=== PATIENT | female | born 1970 | race Caucasian/White ===

== ENCOUNTER 2018-04-06 09:35 | Emergency (ER) | payer BC ==
[2018-04-06 10:16] VITALS: BP 128/87
--- NOTE | 2018-04-06 10:31 | UC ---
Skin Complaint HPI - HPI Summary HPI Summary: Patient presents complaining of an itchy rash to both arm pits. She has self treated with topical steroid cream, Benadryl and aloe with no relief. The rash does itch. She notes starting a new deodorant approximately a week befor the rash started which she recently discontinued. And with additional questioning here, she recalls starting a new laundry detergent with a new scent as well. She had not made the connection with laundry detergent and has been still using that. The actual rash in the armpits has improved but it is spread for tobacco little bit on either side right worse than left. She has no fever or chills. She denies any other rash. And offers no other complaints. No family has the rash. - History of Current Complaint Hx Obtained From: Patient Hx Last Menstrual Period: 03/13/18 Onset/Duration: Gradual Onset Timing: Constant Pain Intensity: 0 Alleviating Factor(s): Nothing Associated Signs & Symptoms: Negative: Fever <Jacquelyn Youngblood - Last Filed: 04/06/18 10:42> <Conner Lau - Last Filed: 04/06/18 11:14> - History of Current Complaint Chief Complaint: [facility] Time Seen by Provider: 04/06/18 10:24 Stated Complaint: RASH ON ARM PITS - Allergy/Home Medications Allergies/Adverse Reactions: Allergies Allergy/AdvReac Type Severity Reaction Status Date / Time No Known Allergies Allergy Verified 04/06/18 10:13 Review of Systems Constitutional: Negative Skin: Rash Eyes: Negative ENT: Negative Respiratory: Negative Cardiovascular: Negative Gastrointestinal: Negative Genitourinary: Negative Motor: Negative Neurovascular: Negative Musculoskeletal: Negative Neurological: Negative Psychological: Negative Is Patient Immunocompromised?: No All Other Systems Reviewed And Are Negative: Yes <Jacquelyn Youngblood - Last Filed: 04/06/18 10:42> PMH/Surg Hx/FS Hx/Imm Hx Previously Healthy: Yes - Surgical History Surgical History: Yes Surgery Procedure, Year, and Place: Cholecystectomy, 2010, [place]; Tubal Ligation and , 2006, [facility] [place]; C-Sections, 2004 2001, [facility] [place] - Family History Known Family History: Positive: Respiratory Disease - no history of asthma - Social History Lives: With Family Alcohol Use: Occasionally Substance Use Type: None Smoking Status (MU): Never Smoked Tobacco - Immunization History Most Recent Influenza Vaccination: Not the 2015/2016 Season Vaccination Up to Date: Yes <Jacquelyn Youngblood - Last Filed: 04/06/18 10:42> Physical Exam Triage Information Reviewed: Yes Appearance: Well-Appearing Vital Signs: Initial Vital Signs Temp 98.3 F 04/06/18 10:14 Pulse 75 04/06/18 10:14 Resp 16 04/06/18 10:14 BP 128/87 04/06/18 10:14 Pulse Ox 100 04/06/18 10:14 Eyes: Positive: Conjunctiva Clear ENT: Positive: Normal ENT inspection Neck: Positive: Supple, Nontender, No Lymphadenopathy Respiratory: Positive: Lungs clear, Normal breath sounds Cardiovascular: Positive: RRR, No Murmur Abdomen Description: Positive: Nontender, No Organomegaly, Soft Bowel Sounds: Positive: Present Musculoskeletal: Positive: ROM Intact Neurological: Positive: Alert Psychological: Positive: Age Appropriate Behavior Skin Exam: Normal, Other - Both axilla have a mild papular rash the spreads some what lateral - posterior, R>L. Not petechial, peeling and no burrows. <Jacquelyn Youngblood - Last Filed: 04/06/18 10:42> Vital Signs: Initial Vital Signs Temp 98.3 F 04/06/18 10:14 Pulse 75 04/06/18 10:14 Resp 16 04/06/18 10:14 BP 128/87 04/06/18 10:14 Pulse Ox 100 04/06/18 10:14 <Conner Lau - Last Filed: 04/06/18 11:14> Course/Dx - Course Course Of Treatment: no concern for bacterial infection. rash is concerning for contact dermatitis and possible fungal componenet. since not improved with prior tx's, will d/c allof those as well as the deodorant and new detergent. will tx with anti fungal powder and medrol dose pack. - Diagnoses Provider Diagnoses: Dermatitis axillary areas <Jacquelyn Youngblood - Last Filed: 04/06/18 10:42> Discharge - Sign-Out/Discharge Documenting (check all that apply): Discharge/Admit/Transfer - Billing Disposition and Condition Condition: STABLE Disposition: Home <Jacquelyn Youngblood - Last Filed: 04/06/18 10:42> - Billing Disposition and Condition Condition: STABLE Disposition: Home <Conner Lau - Last Filed: 04/06/18 11:14> - Discharge Plan Condition: Stable Disposition: HOME Prescriptions: methylPREDNISolone [Medrol Dosepak 4 MG*] 0 mg PO .SEE SAMUEL INSTRUCTION #1 tab Nystatin TOP POWDER* 1 applic TOPICAL BID 14 Days #1 btl Patient Education Materials: Dermatitis (ED) Referrals: Pretty Fatima MD [Primary Care Provider] - 7 Days Additional Instructions: STOP ALL PRIOR TREATMENTS. USE UNSCENTED DETERGENT AND STOP DEODORANT UNTIL RASH RESOLVES Per institutional requirements, I have reviewed the chart, however, I was not consulted specifically or made aware of this patient by the above midlevel provider. I did not personally evaluate, interact with , or disposition this patient.
== END 2018-04-06 10:46 | disposition home or self-care (01) ==
LOC: UCCORT 09:35
DX: L30.9 Dermatitis, unspecified (principal); Z83.6 Family history of other diseases of the respiratory system
CPT/HCPCS: 99212; G0463

== ENCOUNTER 2018-11-13 17:24 | Emergency (ER) | payer BC ==
--- OUTSIDE RECORDS SUMMARY | 2018-11-13 19:38 | XMS REPORT | Continuity of Care Document ---
:1970 External Reference #:[id number] Author Name Roshni Diaz PA Address [address] [place] [address] Care Team Providers Name Role Phone Pretty Fatima MD Primary Care Physician Unavailable Payers Date Identification Numbers Payment Provider Subscriber Effective: 2012 Policy Number: [id number] [facility] [employer] Santhosh Villegas PayID: [id number] [address] [address] [place] [phone] Effective: 2011 Policy Number: [id number] [facility] [employer] Deo Villegas Expires: 2012 PayID: [id number] [address] [address] [place] [phone] Advance Directives Description No Information Available Problems Date Description Provider Status Onset: 10/26/2010 Diabetes mellitus in the puerperium - Pretty Fatima MD Resolved baby delivered during previous episode of care Resolved: 01/02/2018 Family History Date Family Member(s) Observation Comments Father Hypertension Father Atrial Fibrillation Father Carotid Stenosis Mother Rheumatoid Arthritis diagnosed in her 70's Paternal Grandfather due to Cancer () Paternal Grandmother due to Heart Disease () Maternal Grandfather due to Stroke () Maternal Grandmother due to Natural Causes () Maternal Grandmother due to DM-2 () Social History Type Date Description Comments Sex Unknown Education Highest Level Completed Master's Degree Marital Status Lives With Spouse Lives With Daughters Smoke-Free Home is smoke-free Pets 1 cat Occupation Teacher [employer], 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 ETOH Use Rarely consumes alcohol Tobacco Use Start: Unknown Patient has never smoked Smoking Status Reviewed: 08/24/18 Patient has never smoked Allergies, Adverse Reactions, Alerts Date Description Reaction Status Severity Comments 10/26/2010 Bee Sting Swelling Active Medications Medication Date Status Form Strength Qnty SIG Indications Ordering Provider Epinephrine 05/16/ Active Solution 0.3mg/0.3M 1units 1 injection 2010 Auto-Injec L as needed MD Pretty t anaphyllaxis then call 911 Advil / Active Tablets 200mg 2 tab three Unknown 0000 times a day as needed Omeprazole 12/22/ Hx Capsules 20mg 30caps 1 po qd Kushal 2012 - DR Pretty MD 2014 Immunizations CPT Code Status Date Vaccine Lot # [id number] Given 04/26/2007 Tdap (Adacel) Ages 7 And Above Only [id number] Refused 08/24/2018 Flu Vaccine NOS [id number] Refused 01/02/2018 Afluria Or Fluvirin Flu Vac Intramuscular Vital Signs Date Vital Result Comment 11/12/2018 1:00pm Weight 199.00 lb Heart Rate 70 /min BP Systolic 128 mmHg BP Diastolic 70 mmHg Respiratory Rate 18 /min Height 62.50 inches 5'2.50" BMI (Body Mass Index) 35.8 kg/m2 08/24/2018 9:05am Weight 193.00 lb Heart Rate 62 /min BP Systolic 124 mmHg BP Diastolic 74 mmHg Respiratory Rate 16 /min Height 62.50 inches 5'2.50" O2 % BldC Oximetry 99 % Ra BMI (Body Mass Index) 34.7 kg/m2 01/02/2018 1:56pm Body Temperature 98.8 F Weight 205.00 lb Heart Rate 76 /min BP Systolic 120 mmHg BP Diastolic 70 mmHg Height 62.50 inches 5'2.50" 01/02/18 BMI (Body Mass Index) 36.9 kg/m2 08/22/2017 1:11pm Weight 193.00 lb Heart Rate 68 /min BP Systolic 130 mmHg BP Diastolic 70 mmHg Respiratory Rate 18 /min Height 62.50 inches 5'2.50" 05/16/15 BMI (Body Mass Index) 34.7 kg/m2 08/15/2015 3:16pm Weight 195.00 lb wearing shoes and carrying her purse Heart Rate 76 /min BP Systolic 112 mmHg BP Diastolic 70 mmHg Respiratory Rate 18 /min Height 62.50 inches 5'2.50" 05/16/15 BMI (Body Mass Index) 35.1 kg/m2 05/16/2015 1:58pm Weight 182.00 lb Heart Rate 76 /min BP Systolic 112 mmHg BP Diastolic 60 mmHg Respiratory Rate 18 /min Height 62.50 inches 5'2.50" 05/16/15 BMI (Body Mass Index) 32.8 kg/m2 Results Test Date Facility Test Result H/L Range Note Laboratory test finding 09/16/2018 [facility] TSH 1.64 uIU/mL 0.35-4.94 1 Comprehensive Met 09/16/2018 [facility] Sodium 140 mmol/L 135-146 2 Panel-[facility]CMG Potassium 4.2 mmol/L 3.5-5.2 Chloride# 103 mmol/L 97-110 3 Carbon Dioxide 27 mmol/L 24-34 Glucose 88 mg/dL 70-105 BUN 11 mg/dL 6-26 Creatinine 0.8 mg/dL 0.5-1.4 Calcium 9.3 mg/dL 8.5-10.2 Total Protein 6.3 g/dL 6.0-8.0 Albumin 4.2 g/dL 3.6-4.9 Globulin 2.1 g/dL 2.0-3.5 A/G Ratio 2.0 Ratio 1.0-2.2 Total Bilirubin 0.8 mg/dL 0.1-1.3 Alkaline Phosphatase 91 U/L 24-140 Alt 12 U/L 3-42 Ast 12 U/L 8-42 Elisabeth Egfr >60 >60 4 Non Elisabeth Egfr >60 >60 5 Anion Gap 10 mmol/L 5-15 6 Lipid 09/16/2018 [facility] Cholesterol 165 mg/dL 50-199 Triglycerides 120 mg/dL 30-200 HDL 40 mg/dL 35-85 7 Chol/ HDL Ratio 4.2 ratio 3.7-5.6 VLDL 24 mg/dL 2-29 LDL (Calc) 101 mg/dL High 20-99 8 CBC with Auto Diff-fcmg 09/16/2018 [facility] WBC 5.0 K/uL 4.1-11.0 RBC 4.44 M/uL 4.00-5.40 Hemoglobin 13.5 gm/dL 12.0-16.0 Hematocrit 39.2 % 36.0-47.0 MCV 88.3 fL 80.0-97.0 MCH 30.4 pg 27.0-32.0 MCHC 34.4 g/dL 32.0-36.0 RDW 12.9 % 11.5-14.5 PLT Count 197 K/ul 140-400 MPV 9.3 FL 7.1-10.7 Neutrophil 59.9 % 35.0-75.0 Lymphocyte 31.0 % 16.0-52.0 Monocyte 7.4 % 2.0-10.0 Eosinophil 1.0 % 0.0-5.0 Basophil 0.7 % 0.0-4.0 Abs Neutrophils 3.0 K/uL 2.1-8.0 Abs Lymphocytes 1.6 K/uL 0.8-5.5 Abs Monocytes 0.4 K/uL 0.1-1.0 Abs Eosinophils 0.1 K/uL 0.0-0.5 Abs Basophils 0.0 K/uL 0.0-0.3 Iron Panel 09/16/2018 [facility] Iron, Total 74 g/dL 50-170 Transferrin 252.0 mg/dL 203.0-362.0 Tibc (calc) 353 g/dL 261-478 % Iron Saturation 21.0 % 13.0-45.0 Laboratory test [facility] Negative Negative Rheumatoid Factor-FCMG <10.0 IU/mL 0.0-10.0 CBC With Auto Diff 01/02/2018 [facility] WBC 7.4 K/uL 4.1-11.0 RBC 4.38 M/uL 4.00-5.40 Hemoglobin 13.5 gm/dL 12.0-16.0 Hematocrit 38.7 % 36.0-47.0 MCV 88.5 fL 80.0-97.0 MCH 30.8 pg 27.0-32.0 MCHC 34.9 g/dL 32.0-36.0 RDW 12.9 % 11.5-14.5 PLT Count 185 K/ul 140-400 MPV 9.2 FL 7.1-10.7 Neutrophil 71.5 % 35.0-75.0 Lymphocyte 21.2 % 16.0-52.0 Monocyte 6.1 % 2.0-10.0 Eosinophil 0.7 % 0.0-5.0 Basophil 0.5 % 0.0-4.0 Abs Neutrophils 5.3 K/uL 2.1-8.0 Abs Lymphocytes 1.6 K/uL 0.8-5.5 Abs Monocytes 0.5 K/uL 0.1-1.0 Abs Eosinophils 0.0 K/uL 0.0-0.5 Abs Basophils 0.0 K/uL 0.0-0.3 Comprehensive Met Panel-FCMG 01/02/2018 [facility] Sodium 140 mmol/L 135- 146 9 Potassium 3.9 mmol/L 3.5-5.2 Chloride# 102 mmol/L 97-110 10 Carbon Dioxide 30 mmol/L 24-34 Glucose 101 mg/dL 70-105 BUN 11 mg/dL 6-26 Creatinine 0.9 mg/dL 0.5-1.4 Calcium 9.0 mg/dL 8.5-10.2 Total Protein 6.4 g/dL 6.0-8.0 Albumin 4.6 g/dL 3.6-4.9 Globulin 1.8 g/dL Low 2.0-3.5 A/G Ratio 2.6 Ratio High 1.0-2.2 Total Bilirubin 0.7 mg/dL 0.1-1.3 Alkaline Phosphatase 92 U/L 24-140 Alt 16 U/L 3-42 Ast 16 U/L 8-42 Elisabeth Egfr >60 >60 11 Non Elisabeth Egfr >60 >60 12 Anion Gap 8 mmol/L 5-15 13 Laboratory test finding 01/02/2018 [facility] CRP (C-Reactive) 0.34 mg/dL 0.00-0.75 Esr 11 mm/hr 0-20 [facility] test [facility]2017 [facility] SEE NOTE 14 finding Thin Prep Laboratory test 08/22/2017 [facility] HPV [facility] Allia 15 finding [phone] <SEE NOTE> Laboratory test 08/15/2015 [facility] Esr 16 mm/hr 0-20 finding Rheumatoid Factor <10.0 IU/mL 0.0-10.0 CRP (C-Reactive) 0.41 mg/dL 0.00-0.75 CBC With Auto Diff 08/15/2015 [facility] WBC 7.0 K/uL 4.1-11.0 RBC 4.42 M/uL 4.00-5.40 Hemoglobin 13.3 gm/dL 12.0-16.0 Hematocrit 39.5 % 36.0-47.0 MCV 89.5 fL 80.0-97.0 MCH 30.2 pg 27.0-32.0 MCHC 33.7 g/dL 32.0-36.0 RDW 12.9 % 11.5-14.5 PLT Count 187 K/ul 140-400 Neutrophil 61.0 % 35.0-75.0 Lymphocyte 29.9 % 16.0-52.0 Monocyte 7.5 % 2.0-10.0 Eosinophil 0.9 % 0.0-5.0 Basophil 0.7 % 0.0-4.0 Abs Neutrophils 4.3 K/uL 2.1-8.0 Abs Lymphocytes 2.1 K/uL 0.8-5.5 Abmon 0.5 K/uL 0.1-1.0 Abs Eosinophils 0.1 K/uL 0.0-0.5 Abs Basophils 0.0 K/uL 0.0-0.3 Laboratory test finding 08/15/2015 [facility] Lisa Screen Neg Neg TSH 1.64 uIU/mL 0.35-4.94 Vitamin B12 319 pg/mL 180-914 Hepatic Panel (LFT) 05/17/2015 [facility] Total Protein 6.9 g/dL 6.0-8.0 Albumin 4.4 g/dL 3.6-4.9 Total Bilirubin 1.0 mg/dL 0.1-1.3 Direct Bilirubin 0.2 mg/dL 0.0-0.4 Alkaline Phosphatase 91 U/L 24-140 Alt 16 U/L 3-42 Ast 13 U/L 8-42 Celiac Disease Panel-RL 05/17/2015 [facility] Gliadin Peptide Iga 9 [arb'U] (<20) 16 Gliadin Peptide Igg 2 [arb'U] (<20) 17 Iga @ 227 mg/dL (71-374) Transglutaminase Iga 9 [arb'U] (<20) 18 Transglutaminase Igg 1 [arb'U] (<20) 19 Laboratory test finding 05/17/2015 [facility] H Pylori AB Igg 0.57 U/mL (< 0.90) 20 H Pylori AB Igm 0.3 EV 21 Laboratory test finding 05/17/2015 [facility] Hemoglobin A1c 5.2 % 4.1-5.9 Basic (BMP) 05/17/2015 [facility] Sodium 138 mmol/L 134-142 Potassium 4.1 mmol/L 3.5-5.2 Chloride 102 mmol/L 97-109 Carbon Dioxide 29 mmol/L 24-34 Glucose 73 mg/dL 70-105 BUN 11 mg/dL 6-26 Creatinine 0.7 mg/dL 0.5-1.4 Calcium 9.2 mg/dL 8.5-10.2 Anion Gap 11 mmol/L 6-14 Non Elisabeth Egfr >60 >60 22 Elisabeth Egfr >60 >60 23 Lipid 05/17/2015 [facility] Cholesterol 150 mg/dL 50-199 Triglycerides 107 mg/dL 30-200 HDL 42 mg/dL 35-85 24 Chol/ HDL Ratio 3.6 ratio Low 3.7-5.6 VLDL 21 mg/dL 2-29 LDL (Calc) 87 mg/dL 20-99 25 Comprehensive Metabolic 05/11/2015 [facility] Glucose 120 mg/dL High 74-106 Panel (315)- - BUN 7 mg/dL 7-18 Creatinine 0.8 mg/dL 0.6-1.3 Glom Filtration Rate, Estimate >60 mL/min >60 If >60 mL/min >60 26 BUN/Creat 8.7 ratio Sodium 135 mmol/L Low 136-145 Potassium 3.7 mmol/L 3.5-5.1 Chloride 100 mmol/L 98-107 Carbon Dioxide 31 mmol/L 21-32 Anion Gap 4 mEq/L Low 8-16 Calcium 8.8 mg/dL 8.5-10.1 Total Protein 7.3 g/dL 6.4-8.2 Albumin 4.0 g/dL 3.4-5.0 Globulin 3.3 g/dL 1.9-4.3 Alb/Glob 1.2 ratio Bilirubin,Total 0.7 mg/dL 0.2-1.0 Sgot/Ast 13 U/L Low 15-37 27 SGPT/Alt 24 U/L 12-78 Alkaline Phosphatase 115 U/L 45-117 Laboratory test finding 05/11/2015 [facility] Lipase 110 U/L 73-393 (315)- - CK 82 U/L 26-192 Troponin-I < 0.015 ng/mL 28 HCG,Serum (Qualitative) NEGATIVE (Negative) CBC W/Automated Diff 05/11/2015 [facility] White Blood 7.9 K/uL 3.1-10.7 (315)- - Count Red Blood Count 4.38 M/uL 3.90-5.40 Hemoglobin 13.8 gm/dL 11.6-15.8 Hematocrit 40.0 % 36.0-46.1 Mean Cell Volume 91.3 fl 80.9-99.0 Mean Corpuscular HGB 31.5 pg 25.9-32.7 Mean Corpuscular HGB Conc 34.5 g/dL High 30.8-34.3 Platelet Count 194 K/uL 155-360 Red Cell Distri Width SD 41.0 fl 3-47 Red Cell Distri Width %CV 12.7 % 11.7-14.4 Mean Platelet Volume 10.8 fL 8.9-12.4 Neut% 78.5 % High 40.4-72.8 Lymph % 15.7 % Low 17.0-46.1 [place] % 5.3 % 4.3-13.2 Eo% 0.1 % 0.0-6.6 Bas% 0.4 % 0.0-1.1 Neut# 6.21 K/uL 1.0-7.0 Lymph # 1.24 K/uL Low 1.8-7.0 [place] # 0.42 K/uL 0.3-0.9 Eos # 0.01 K/uL 0.0-0.5 Baso # 0.03 K/uL 0.0-0.1 Laboratory test 05/11/2015 [facility] Troponin-I < 0.015 ng/mL 29 finding (315)- - Urine Screen 05/11/2015 [facility] Urine Color YELLOW Yellow (315)- - Urine Clarity CLEAR Clear Urine Glucose - Dipstick NEGATIVE mg/dL Negative Urine Bilirubin - Dipstick NEGATIVE Negative Urine Ketone NEGATIVE mg/dL Negative Urine Specific [place] 1.025 1.010-1.030 Urine Blood NEGATIVE Negative Urine PH 6.0 Low 6.5-7.5 Urine Protein - Dipstick NEGATIVE mg/dL Negative Urine Urobilinogen - Dipstick 0.2 E.U./dL 0.2-1.0 Urine Nitrite - Dipstick NEGATIVE Negative Urine Leuk Esterase NEGATIVE Negative Laboratory test 05/11/2015 [facility] D-Dimer, 0.26 ug/ mL 30 finding (315)- - Quantitative Laboratory test 11/13/2013 N2N/CCD Import Troponin-I < 0.02 0.00-0 31 finding ng/mL .50 Laboratory test 11/13/2013 N2N/CCD Import Troponin-I < 0.02 0.00-0 32 finding ng/mL .50 Laboratory test 11/12/2013 N2N/CCD Import D-Dimer, < 0.22 33 finding Quantitative ug/mL Laboratory test 11/12/2013 N2N/CCD Import Alb/Glob 1.1 ratio finding Albumin 4.1 g/dL 3.5-5.0 Alkaline Phosphatase 108 U/L 50-136 Anion Gap 13 mEq/L 8-16 BUN 10 mg/dL 5-23 BUN/Creat 12.5 ratio Bilirubin,Total 0.9 mg/dL 0.2-1.2 CK 82 U/L 26-190 Calcium 8.9 mg/dL 8.5-10.1 Carbon Dioxide 23 mEq/L 18-29 Chloride 105 mmol/L 98-107 Creatinine 0.8 mg/dL 0.5-1.4 Globulin 3.6 g/dL 1.9-4.3 Glom Filtration Rate, Estimate >60 mL/min >60 Glucose 114 mg/dL 76-115 HCG Serum, Qualitative Negative If >60 mL/min >60 34 Potassium 3.5 mmol/L 3.5-5.1 SGPT/Alt 23 U/L Low 30-65 Sgot/Ast 19 U/L 16-40 Sodium 137 mmol/L 136-145 Total Protein 7.7 g/dL 6.3-8.0 Troponin-I < 0.02 ng/mL 0.00-0.50 35 CBS W/Automated Diff 11/12/2013 N2N/CCD Import Bas% 0.2 % 0.0-1.1 Baso # 0.02 K/uL 0.0-0.1 Eo% 0.2 % 0.0-6.6 Eos # 0.02 K/uL 0.0-0.5 Hematocrit 38.2 % 36.0-46.1 Hemoglobin 13.3 gm/dL 11.6-15.8 Lymph # 1.96 K/uL 0.8-3.4 Lymph % 20.9 % 17.0-46.1 Mean Cell Volume 87.4 fl 80.9-99.0 Mean Corpuscular HGB 30.4 pg 25.9-32.7 Mean Corpuscular HGB Conc 34.8 g/dL High 30.8-34.3 Mean Platelet Volume 10.9 fL 8.9-12.4 [place] # 0.79 K/uL 0.3-0.9 [place] % 8.4 % 4.3-13.2 Neut# 6.59 K/uL 1.0-7.0 Neut% 70.3 % 40.4-72.8 Platelet Count 215 K/uL 155-360 Red Blood Count 4.37 M/uL 3.90-5.40 Red Cell Distri Width %CV 12.4 % 11.7-14.4 Red Cell Distri Width SD 38.7 fl 3-47 White Blood Count 9.4 K/uL 3.1-10.7 1 soon 2 Updated reference range on new analyzer 3 Updated reference range on new analyzer 4 Concerning GFR Guidelines for Americans: Normal function or mild renal disease, if clinically at risk: >/=60 mL/min Moderately decreased: 30-59 Severely decreased: 15-29 Renal failure: <15 5 Concerning GFR Guidelines: Normal function or mild renal disease, if clinically at risk: >/=60 mL/min Moderately decreased: 30-59 Severely decreased: 15-29 Renal failure: <15 Glomerular Filtration Rate (GFR) is estimated based on the MDRD equation, which assumes a steady state for creatinine as recommended by the National Kidney Disease Education Program in conjunction with the National Institutes of Health and the National Kidney Foundation. Clinical conditions in which it may be necessary to measure GFR by using clearance methods include extremes of age and body size, severe malnutrition or obesity, diseases of skeletal muscle, paraplegia or quadriplegia, vegetarian diet, rapidly changing kidney function, and calculation of the dose of potentially toxic drugs that are excreted by the kidneys. 6 Updated Reference Range 7 Per NCEP ATP III Guidelines: Results lower than 40 mg/dL are suggestive of increased risk for coronary artery disease. Results > or=to 60 mg/dL are considered a negative risk factor. 8 Per NCEP ATP III Guidelines: Normal Population <130 Patients with medical conditions: CHD/DM Optimal: <100 Borderline high: 130-159 High: 160-189 Very high: >189 9 Updated reference range on new analyzer 10 Updated reference range on new analyzer 11 Concerning GFR Guidelines for Americans: Normal function or mild renal disease, if clinically at risk: >/=60 mL/min Moderately decreased: 30-59 Severely decreased: 15-29 Renal failure: <15 12 Concerning GFR Guidelines: Normal function or mild renal disease, if clinically at risk: >/=60 mL/min Moderately decreased: 30-59 Severely decreased: 15-29 Renal failure: <15 Glomerular Filtration Rate (GFR) is estimated based on the MDRD equation, which assumes a steady state for creatinine as recommended by the National Kidney Disease Education Program in conjunction with the National Institutes of Health and the National Kidney Foundation. Clinical conditions in which it may be necessary to measure GFR by using clearance methods include extremes of age and body size, severe malnutrition or obesity, diseases of skeletal muscle, paraplegia or quadriplegia, vegetarian diet, rapidly changing kidney function, and calculation of the dose of potentially toxic drugs that are excreted by the kidneys. 13 Updated Reference Range 14 [employer] [facility] [employer]. [facility] [place] [address] CYTOLOGY REPORT Source of Specimen(s): Thin Prep Cervical Pap Smear - One Vial Date of Last Menstrual Period: 08/10/17 Other Clinical Conditions: Last Pap Smear: 2012 normal HPV ASSAY REQUESTED Specimen Adequacy SATISFACTORY FOR EVALUATION ABSENCE OF ENDOCERVICAL/TRANSFORMATION ZONE COMPONENT General Categorization NEGATIVE FOR INTRAEPITHELIAL LESION OR MALIGNANCY Interpretation NEGATIVE FOR INTRAEPITHELIAL LESION OR MALIGNANCY Comment HPV testing will be performed and a separate report will be issued. Reported: 08/26/2017 09:26 Electronically Signed Out By Raiza HDEZ(ASCP) lgs ICD9 Code: Z01.419 Unless otherwise specified, testing performed by [facility] [address] [address] [employer] [place] [address] Amplified Molecular High Risk HPV Test Patient Name:SANTHOSH VILLEGAS Patient :1970 Ordering Physician:ROSHNI SCOTT Accession Number [id number] Specimen(s) Received A: High Risk HPV Thin Prep Cervical Pap Smear - One Vial Other Case Numbers: [id number] Diagnosis RISK GROUPS RESULTS High Risk NEGATIVE Tested for HPV Types (16, 18, 31, 33, 35, 39, 45, 51, 52, 56, 58, 59, 66, 68) Reported: 08/27/2017 11:06 Electronically Signed Out By Joanna Farfan ramiro Shankar 16 INTERPRETATION OF RESULTS: < 20 UNITS NEGATIVE 20-30 UNITS WEAK POSITIVE > 30 UNITS MODERATE TO STRONG POSITIVE The following result was obtained with the [employer]ite Gliadin IgA II. Results obtained with other manufacturers' assay methods may not be used interchangeably. The magnitude of the reported IgA level cannot be correlated to an endpoint titer. 17 INTERPRETATION OF RESULTS: < 20 UNITS NEGATIVE 20-30 UNITS WEAK POSITIVE > 30 UNITS MODERATE TO STRONG POSITIVE The following result was obtained with the [employer] QUANT[employer] Lite Gliadin IgG II. Results obtained with other manufacturers' assay methods may not be used interchangeably. The magnitude of the reported IgG levels cannot be correlated to an endpoint titer. 18 INTERPRETATION OF RESULTS: < 20 UNITS NEGATIVE 20-30 UNITS WEAK POSITIVE > 30 UNITS MODERATE TO STRONG POSITIVE The following result was obtained with the [employer] QUANT[employer] Lite h-tTG IgA GEOFFREY. Results obtained with other manufacturers' assay methods may not be used interchangeably. The magnitude of the reported IgA level cannot be correlated to an endpoint titer. Performed at [address] [place] [address] 19 INTERPRETATION OF RESULTS: < 20 UNITS NEGATIVE 20-30 UNITS WEAK POSITIVE > 30 UNITS MODERATE TO STRONG POSITIVE The following result was obtained with the [employer] QUANT[employer] Lite h-tTG IgG GEOFFREY. Results obtained with other manufacturers' assay methods may not be used interchangeably. The magnitude of the reported IgG levels cannot be correlated to an endpoint titer. Performed at [address] [place] [address] Unless otherwise specified, testing performed by [facility] [address] [place] [id number] 20 < 0.90 NEGATIVE > 0.89 AND < 1.09 INDETERMINATE > 1.09 POSITIVE Unless otherwise specified, testing performed by [facility] [address] [place] [id number] 21 Reference range: <=0.8 INTERPRETIVE INFORMATION: Helicobacter Pylori Ab, IgM 0.8 EV or Less .......... Negative: No significant level of IgM antibody to H.pylori detected. 0.9-1.1 EV .............. Equivocal: Repeat testing in 10-14 days may be helpful. 1.2 EV or Greater ....... Positive: IgM antibody to H. pylori detected, suggestive of an active infection. Gastric colonization by Helicobacter pylori has been implicated in the development of some cases of gastritis and peptic or duodenal ulcer. The clinical utility of H. pylori antibody, IgM measurement has not been clearly established. For additional information, refer to Helicobacter pylori topic at [facility] Test developed and characteristics determined by [facility]. See Compliance Statement B: [employer] Performed by [facility], [address] [place] [id number] [email or web address], Hardeep Schulte MD, Lab. Director Unless otherwise specified, testing performed by [facility] [employer] [address] [place] [id number] 22 Concerning GFR Guidelines: Normal function or mild renal disease, if clinically at risk: >/=60 mL/min Moderately decreased: 30-59 Severely decreased: 15-29 Renal failure: <15 Glomerular Filtration Rate (GFR) is estimated based on the MDRD equation, which assumes a steady state for creatinine as recommended by the National Kidney Disease Education Program in conjunction with the National Institutes of Health and the National Kidney Foundation. Clinical conditions in which it may be necessary to measure GFR by using clearance methods include extremes of age and body size, severe malnutrition or obesity, diseases of skeletal muscle, paraplegia or quadriplegia, vegetarian diet, rapidly changing kidney function, and calculation of the dose of potentially toxic drugs that are excreted by the kidneys. 23 Concerning GFR Guidelines for Americans: Normal function or mild renal disease, if clinically at risk: >/=60 mL/min Moderately decreased: 30-59 Severely decreased: 15-29 Renal failure: <15 24 Per NCEP ATP III Guidelines: Results lower than 40 mg/dL are suggestive of increased risk for coronary artery disease. Results > or=to 60 mg/dL are considered a negative risk factor. 25 Per NCEP ATP III Guidelines: Normal Population <130 Patients with medical conditions: CHD/DM Optimal: <100 Borderline high: 130-159 High: 160-189 Very high: >189 26 Note: Persistent reduction for 3 months or more in an eGFR <60 mL/min/1.73 m2 defines CKD. Patients with eGFR values >/=60 mL/min/1.73 m2 may also have CKD if evidence of persistent proteinuria is present. The original MDRD equation for estimated GFR is not valid for patients less than 18 years of age. Additional information may be found at www.kdoqi.org. 27 Values below the stated reference ranges of AST and ALT can be seen in normal populations. Clinical correlation is suggested. 28 0.0 - 0.045 ng/mL: Normal 0.046 - 0.5 ng/mL: Suggestive 0.6 - 1.5 ng/mL: Consistent 29 0.0 - 0.045 ng/mL: Normal 0.046 - 0.5 ng/mL: Suggestive 0.6 - 1.5 ng/mL: Consistent 30 <=0.49 ug/mL - Low likelihood of DIC, DVT or Pulmonary Embolism >0.49 ug/mL - Additional testing should be done to rule out DIC, DVT, or Pulmonary embolism as clinically indicated. ([facility] has established a 97.89% negative predictive value for thrombotic disease when a cutoff value of 0.5 ug/mL is used.) 31 0 - 0.5 ng/mL: No evidence of myocardial injury 0.6 - 1.4 ng/mL: Mild elevation, suggesting possible myocardial injury > 1.4 ng/mL: Consistent with myocardial injury 32 0 - 0.5 ng/mL: No evidence of myocardial injury 0.6 - 1.4 ng/mL: Mild elevation, suggesting possible myocardial injury > 1.4 ng/mL: Consistent with myocardial injury 33 <=0.49 ug/mL - Low likelihood of DIC, DVT or Pulmonary Embolism >0.49 ug/ mL - Additional testing should be done to rule out DIC, DVT, or Pulmonary embolism as clinically indicated. ([facility] has established a 97.89% negative predictive value for thrombotic disease when a cutoff value of 0.5 ug/mL is used.) 34 Note: Persistent reduction for 3 months or more in an eGFR <60 mL/min/1.73 m2 defines CKD. Patients with eGFR values >/=60 mL/min/1.73 m2 may also have CKD if evidence of persistent proteinuria is present. The original MDRD equation for estimated GFR is not valid for patients less than 18 years of age. Additional information may be found at www.kdoqi.org. 35 0 - 0.5 ng/mL: No evidence of myocardial injury 0.6 - 1.4 ng/mL: Mild elevation, suggesting possible myocardial injury > 1.4 ng/mL: Consistent with myocardial injury Procedures Date Code Description Status 10/07/2018 50255100 Mammogram Completed 08/24/2018 55804 Brief Emotional/Behav Assessment W/ Scoring Doc Per Completed Standard Inst 01/02/2018 34412 Brief Emotional/Behav Assessment W/ Scoring Doc Per Completed Standard Inst 09/03/2017 [id number] Mammogram Completed 08/15/2015 32534 X-Ray Spine Lumbosacral Complete W/Oblique Views Completed 05/19/2015 [id number] Mammogram Completed Encounters Type Date Location Provider Dx Diagnosis Office Visit 08/24/2018 [facility] Pretty Fatima MD Z01.419 Encntr for public health engineer exam 9:00a (general) (routine) w/o abn findings M12.9 Arthropathy, unspecified Z13.31 Encounter for screening for depression Z12.31 Encntr screen mammogram for malignant neoplasm of breast R53.83 Other fatigue D48.5 Neoplasm of uncertain behavior of skin Z68.34 Body mass index (BMI) 34.0-34.9, adult Office Visit 01/02/2018 1:45p [facility] Pretty Fatima MD R10.31 RIGHT lower quadrant pain R10.32 LEFT lower quadrant pain Z13.89 Encounter for screening for other disorder M53.3 Sacrococcygeal disorders, not elsewhere classified Office Visit 08/22/2017 1:15p [facility] Roshni Diaz PA Z01.419 Encntr for public health engineer exam (general) (routine) w/o abn findings Z12.31 Encntr screen mammogram for malignant neoplasm of breast Office Visit 08/15/2015 3:00p [facility] Pretty Fatima MD M12.9 Arthropathy, unspecified M25.552 Pain in LEFT hip R53.83 Other fatigue Office Visit 05/16/2015 2:00p [facility] Pretty Fatima MD 789.06 Pain Abdominal Epigastric 648.04 Diabetes Mellitus Cond Or Compl V76.11 Screening Mammogram For High Risk V77.91 Screening For Lipoid Disorders Plan of Treatment Future Appointment(s):08/26/2019 8:45 am - Pretty Fatima MD at [facility]11/12/2018 - Roshni Diaz PAM25.511 Pain in RIGHT shoulderNew Xrays:MRI, Upr Extrem Any Joint W/O Contr, Scheduled: 11/18/18Comments:? biceps tendon vs rotator cuffSuggest trial of PTPt requests MRI for evalWill order MRI and treat accordinglyCan continue ibuprofen, heatCall with worsening/persisting symptomsFollow up:PrnZ68.35 Body mass index (BMI) 35.0-35.9, adult
[2018-11-13 19:43] VITALS: BP 129/64
--- NOTE | 2018-11-13 20:06 | UC ---
Shoulder Pain HPI - HPI Summary HPI Summary: 48-year-old female presents with complaints of right shoulder pain. States she' s been having intermittent episodes of shoulder pain for several months however over the last week and a half she's been having more constant and progressively worsening pain. She was seen by her primary care provider yesterday for the same and has been scheduled for an MRI next week. States she has been taking ibuprofen 400 mg every 6 hours and supplementing with acetaminophen as well with very little relief in the pain. Describes the pain as a constant ache. Worsens with movement. Denies injury, fever, chills, rash, chest pain, palpitations, shortness of breath, abdominal pain, nausea, or vomiting. - History of Current Complaint Chief Complaint: UCUpperExtremity Stated Complaint: RIGHT SHOULDER INJURY Time Seen by Provider: 11/13/18 19:58 Hx Obtained From: Patient Hx Last Menstrual Period: 11/01/18 Pain Intensity: 7 - Allergies/Home Medications Allergies/Adverse Reactions: Allergies Allergy/AdvReac Type Severity Reaction Status Date / Time No Known Allergies Allergy Verified 11/13/18 19:39 Home Medications: Home Medications Acetaminophen TAB* [Tylenol TAB*] 650 mg PO Q4H PRN 11/13/18 [History Confirmed 11/13/18] PMH/Surg Hx/FS Hx/Imm Hx Previously Healthy: Yes - Denies significant PMH - Surgical History Surgical History: Yes Surgery Procedure, Year, and Place: Cholecystectomy, 2010, [facility]; Tubal Ligation and , 2006, [facility] [place]; C-Sections, 2004 2001, [facility] [place] - Family History Known Family History: Positive: Respiratory Disease - no history of asthma - Social History Occupation: Employed Full-time Lives: With Family Alcohol Use: Occasionally Substance Use Type: None Smoking Status (MU): Never Smoked Tobacco - Immunization History Most Recent Influenza Vaccination: Not the 2016/2016 Season Vaccination Up to Date: Yes Review of Systems All Other Systems Reviewed And Are Negative: Yes Constitutional: Negative: Fever, Chills Skin: Negative: Rash Respiratory: Negative: Shortness Of Breath, Cough Cardiovascular: Negative: Palpitations, Chest Pain Gastrointestinal: Negative: Abdominal Pain, Vomiting, Diarrhea, Nausea Genitourinary: Positive: Negative Motor: Negative: Weakness Neurovascular: Negative: Decreased Sensation Musculoskeletal: Positive: Other: - See HPI Neurological: Positive: Negative Is Patient Immunocompromised?: No Physical Exam - Summary Physical Exam Summary: GENERAL APPEARANCE: Well developed, well nourished, alert and cooperative, and appears to be in no acute distress. NECK: Neck supple, non-tender. CARDIAC: Normal S1 and S2. No S3, S4 or murmurs. Rhythm is regular. There is no peripheral edema, cyanosis or pallor. Extremities are warm and well perfused. Capillary refill is less than 2 seconds. LUNGS: Clear to auscultation without rales, rhonchi, wheezing or diminished breath sounds. ABDOMEN: Positive bowel sounds. Soft, nondistended, nontender. No guarding or rebound. No masses or hepatosplenomegally. MUSKULOSKELETAL: Tenderness over the AC joint with mildly diminished range of motion due to pain. No gross deformity, ecchymosis, erythema, or lesions are noted. Sensation and circulation intact distally. SKIN: Skin normal color, texture and turgor with no lesions or eruptions. Triage Information Reviewed: Yes Vital Signs: Initial Vital Signs Temp 97.4 F 11/13/18 19:38 Pulse 67 11/13/18 19:38 Resp 14 11/13/18 19:38 BP 129/64 11/13/18 19:38 Pulse Ox 100 11/13/18 19:38 Vital Signs Reviewed: Yes Shoulder Course/Dx - Course Assessment/Plan: 48-year-old female presents with complaints of right shoulder pain. States she's been having intermittent episodes of shoulder pain for several months however over the last week and a half she's been having more constant and progressively worsening pain. She was seen by her primary care provider yesterday for the same and has been scheduled for an MRI next week. States she has been taking ibuprofen 400 mg every 6 hours and supplementing with acetaminophen as well with very little relief in the pain. Describes the pain as a constant ache. Worsens with movement. Denies injury, fever, chills, rash, chest pain, palpitations, shortness of breath, abdominal pain, nausea, or vomiting. Afebrile. Vital signs stable. Exam reveals developed female in no acute distress with tenderness over the AC joint with mildly diminished range of motion due to pain. No erythema, ecchymosis, or lesions are noted. Discussed with patient using a prescription strength of naproxen every 12 hours with food, supplementing with acetaminophen as needed, continued use of ice, or heat, or in alternating ice and then heat, as well as trying a topical analgesic. Patient is agreeable to this plan of care. She is to follow up with her primary care provider as needed. - Differential Dx/Diagnosis Differential Diagnosis/HQI/PQRI: Arthritis, Bursitis, Rotator Cuff Injury, Sprain, Strain, Tendonitis Provider Diagnosis: Right shoulder pain Discharge - Sign-Out/Discharge Documenting (check all that apply): Patient Departure All imaging exams completed and their final reports reviewed: No Studies - Discharge Plan Condition: Stable Disposition: HOME Prescriptions: Naproxen [Naproxen 500 mg tab] 500 mg PO Q12HR #30 tablet Patient Education Materials: Shoulder Pain (ED) Referrals: Pretty Fatima MD [Primary Care Provider] - If Needed () Additional Instructions: Stop taking the ibuprofen. Start taking naproxen 500 mg 1 tab every 12 hours with food. You may take acetaminophen (Tylenol) according to directions with the naproxen if additional pain relief is needed. You may also want to try a topical analgesic such as BenGay, AsperCreme, Capzasin cream for some additional relief. I would recommend continuing with the ice, heat, or alternating ice and heat. Follow-up with your primary care provider as needed. Seek immediate medical attention in the emergency room, worsening pain despite using pain medication, chest pain, shortness of breath, abdominal pain, persistent vomiting, or worsening of symptoms. - Billing Disposition and Condition Condition: STABLE Disposition: Home - Attestation Statements Provider Attestation: I was available for consult. This patient was seen by the BETHANY. The patient was not presented to, seen by, or examined by me. EK
== END 2018-11-13 20:38 | disposition home or self-care (01) ==
LOC: UCCORT 17:24
DX: M25.511 Pain in right shoulder (principal)
CPT/HCPCS: 99212; G0463

== ENCOUNTER 2019-03-04 20:13 | Emergency (ER) | payer BC ==
[2019-03-04 20:33] VITALS: BP 126/58
--- NOTE | 2019-03-04 20:41 | ED ---
Throat Pain/Nasal Congestion - HPI Summary HPI Summary: 48 yr old female with the complaint of bilateral eye irritation, redness and some drainage. Onset about two days. She is a bilingual elementary school teacher. The patient had a cold and sinus symptoms over the past week and this is better. She does not wear contact lenses. she has no other complaints. - History of Current Complaint Chief Complaint: UCEye - Allergies/Home Medications Allergies/Adverse Reactions: Allergies Allergy/AdvReac Type Severity Reaction Status Date / Time No Known Allergies Allergy Verified 11/13/18 19:39 PMH/Surg Hx/FS Hx/Imm Hx - Surgical History Surgery Procedure, Year, and Place: Cholecystectomy, 2010, [place]; Tubal Ligation and , 2006, [facility] [place]; C-Sections, 2004 2001, [facility] [place] Infectious Disease History: No Infectious Disease History: Denies: Traveled Outside the [place] in Last 30 Days - Family History Known Family History: Positive: Respiratory Disease - no history of asthma - Social History Occupation: Employed Full-time Alcohol Use: Occasionally Substance Use Type: Reports: None Smoking Status (MU): Never Smoked Tobacco Review of Systems Constitutional: Negative Positive: Drainage, Erythema Positive: Nasal Discharge All Other Systems Reviewed And Are Negative: Yes Physical Exam Triage Information Reviewed: Yes Vital Signs On Initial Exam: Initial Vitals Temp Pulse Resp BP Pulse Ox 98.7 F 65 16 126/58 98 03/04/19 20:28 03/04/19 20:28 03/04/19 20:28 03/04/19 20:28 03/04/19 20:28 Vital Signs Reviewed: Yes Appearance: Positive: Well-Appearing, No Pain Distress Skin: Positive: Warm, Skin Color Reflects Adequate Perfusion Head/Face: Positive: Normal Head/Face Inspection Eyes: Positive: EOMI, Conjunctiva Inflammed, Discharge ENT: Positive: Nasal congestion, TMs normal Neck: Positive: Nontender Respiratory/Lung Sounds: Positive: Clear to Auscultation, Breath Sounds Present Cardiovascular: Positive: RRR. Negative: Murmur Abdomen Description: Negative: Distended Musculoskeletal: Positive: Strength/ROM Intact Neurological: Positive: Sensory/Motor Intact, Alert, Oriented to Person Place, Time, CN Intact II-III, Normal Gait, Speech Normal Psychiatric: Positive: Normal Diagnostics - Vital Signs Vital Signs Temp Pulse Resp BP Pulse Ox 03/04/19 20:28 98.7 F 65 16 126/58 98 - Laboratory Lab Statement: Any lab studies that have been ordered have been reviewed, and results considered in the medical decision making process. EENT Course/Dx - Course Course Of Treatment: 48 yr old with conjunctivitis. Sulfa drops. DC home - Diagnoses Provider Diagnoses: Conjunctivitis Discharge - Sign-Out/Discharge Documenting (check all that apply): Patient Departure All imaging exams completed and their final reports reviewed: No Studies - Discharge Plan Condition: Good Disposition: HOME Prescriptions: Sulfacetamide 10 % OPTH.MELISSA* [Sulamyd 10% Opth*] 1 drop BOTH EYES Q4H #1 btl Patient Education Materials: Conjunctivitis (ED) Referrals: Pretty Fatima MD [Primary Care Provider] - 2 Days - Billing Disposition and Condition Condition: GOOD Disposition: Home
== END 2019-03-04 20:45 | disposition home or self-care (01) ==
LOC: UCCORT 20:13
DX: H10.9 Unspecified conjunctivitis (principal)
CPT/HCPCS: 99212; G0463